=== PATIENT | male | born 1990 | race African-American/Black ===

== ENCOUNTER 2023-10-29 06:32 | Emergency (ER) | payer MEDICAID ==
[~2023-10-29] VITALS: Ht 180.3 cm; Wt 93.6 kg
[2023-10-29 07:40] LABS: Basophils # (auto) 0.1 10 ^3/uL (0-0.2); Basophils % (auto) 0.7 % (0.0-2.0); Eosinophils # (auto) 0 10 ^3/uL (0-0.8); Eosinophils % (auto) 0.4 % (0.0-7.0); Hematocrit 51.6 % (41.0-53.0); Hemoglobin 16.9 g/dL (13.5-17.5); Lymphocytes # (auto) 1.4 10 ^3/uL (0.4-5.4); Lymphocytes % (auto) 18.3 % (10.0-50.0); Mean Corpuscular Hemoglobin 29.3 pg (28.0-32.0); Mean Corpuscular Hgb Conc. 32.8 g/dL (32.0-36.0); Mean Corpuscular Volume 89.4 fL (80.0-100.0); Monocytes # (auto) 0.5 10 ^3/uL (0-1.3); Monocytes % (auto) 6.5 % (0.0-12.0); Neutrophils # (auto) 5.8 10 ^3/uL (1.6-8.6); Neutrophils % (auto) 74.1 % (37.0-80.0); Nucleated Red Blood Cells % 0.1 %; Red Blood Cells 5.77 10^6/uL (4.5-5.90); Red Cell Distribution Width 14.9 % (11.8-14.3); White Blood Cell 7.9 10^3/uL (4.4-10.8)
[2023-10-29 07:52] LABS: Chloride 101 mmol/L (98-107); Potassium 4.6 mmol/L (3.5-5.1); Sodium 135 mmol/L (136-145)
[2023-10-29 07:53] LABS: Anion Gap 0 (5-15); Carbon Dioxide 34 mmol/L (20-30)
[2023-10-29 07:58] LABS: BUN/Creatinine Ratio 9.1 (10.0-20.0); Blood Urea Nitrogen 10 mg/dL (9-23); Glucose 112 mg/dL (74-106)
[2023-10-29 08:20] VITALS: BP 144/82; TEMP 97.3; O2SAT 100
[2023-10-29 08:21] VITALS: PULSE 57; RESP 20
[2023-10-29] MEDS: KETOROLAC TROMETH 60MG/2ML VIAL IM ONE (08:25)
[2023-10-29 11:25] LABS: Lipase 76 U/L (12-53)
== END 2023-10-29 11:49 | disposition left against medical advice (07) ==
LOC: ER 06:32
DX: K52.9 Noninfective gastroenteritis and colitis, unspecified (principal)
CPT/HCPCS: 36415; 80048; 83690; 85025; 96372; 99283; J1885